=== PATIENT | female | born 1995 | race African-American/Black ===

== ENCOUNTER 2017-03-07 19:28 | Emergency (ER) | payer MEDICAID | END 2017-03-07 20:28 | disposition home or self-care (01) | LOC: D.ER 19:28 | DX: Z11.3 Encounter for screening for infections with a predominantly sexual mode of transmission (principal) ==

== ENCOUNTER 2017-04-21 12:54 | Emergency (ER) | payer MEDICAID ==
[2017-04-21 16:59] LABS: BASOPHILS 0.6 % (0-2); EOSINOPHILS 2.8 % (0-7); HEMOGLOBIN 13.3 g/dL (12-16); LYMPHOCYTES 37.4 % (15-50); MCH 30.4 pg (26.0-34.0); MCHC 32.4 g/dL (31.0-37.0); MCV 93.8 fL (80.0-100.0); MEAN PLATELET VOLUME 12.3 fL (7.4-10.4); MONOCYTES 11.1 % (2-11); NEUTROPHILS 48.1 % (40-80); PLATELET COUNT 203 10x3/uL (130-400); RBC 4.37 10x6/uL (4.00-5.40); WBC 6.8 10x3/uL (4.8-10.8)
[2017-04-21 17:28] LABS: ALBUMIN 3.4 g/dL (3.4-5.0); ALKALINE PHOSPHATASE 75 U/L (46-116); ALT (SGPT) 26 U/L (10-68); CALC OSMOLALITY 280 mosm/kg (275-300); CALCIUM 8.7 mg/dL (8.5-10.1); CARBON DIOXIDE 24.2 mmol/L (21.0-32.0); CHLORIDE - SERUM 107 mmol/L (98-107); CREATININE - SERUM 0.8 mg/dL (0.6-1.3); GLUCOSE 83 mg/dL (74-106); LIPASE 126 U/L (73-393); PROTEIN - SERUM 6.8 g/dL (6.4-8.2); SODIUM 142 mmol/L (136-145); UREA NITROGEN 9 mg/dL (7-18); eGFR NON AFRICAN AMERICAN > 90 mL/min (90-120)
== END 2017-04-21 17:45 | disposition home or self-care (01) ==
LOC: D.ER 12:54
PROVIDERS: Physician Assistant
DX: K52.9 Noninfective gastroenteritis and colitis, unspecified (principal); R19.7 Diarrhea, unspecified; J45.909 Unspecified asthma, uncomplicated